=== PATIENT | male | born 1965 | race Hispanic/Latino ===

== ENCOUNTER 2016-11-17 14:23 | Day surgery (SDC) | payer BC ==
[~2016-11-17 14:23] MED LIST: NACL 0.9% 1000 ML 1,000 ML IV SCH; OMNIPAQUE 300 MG/50 ML (CATH LAB) IV ONE; PEPCID PO NR; WATER FOR IRRIG STERILE IR ONE
[2016-11-17] MEDS ORDERED: DIPRIVAN 10 MG/ML IV ONE (14:46)
[2016-11-17] MEDS ORDERED: DILAUDID ONE (14:46)
--- NOTE | 2016-11-17 15:07 | Anesthesia Day of Surgery ---
Anesthesia Day of Surgery - Day of Surgery Patient Examined: Yes Patient H&P Reviewed: Yes Patient is NPO: Yes
--- NOTE | 2016-11-17 15:10 | Anesthesia Consultation ---
Anesthesia Consult and Med Hx - Airway Anesthetic Teeth Evaluation: Good, Partials (upper front) ROM Head & Neck: Adequate Mental/Hyoid Distance: Adequate Mallampati Class: Class II Intubation Access Assessment: Probably Good - Pulmonary Exam CTA: Yes - Cardiac Exam Cardiac Exam: RRR (has heart murmur and being followed by cardiology. No symptoms) - Pre-Operative Health Status ASA Pre-Surgery Classification: ASA2 Proposed Anesthetic Plan: General - Pulmonary Hx Smoking: No Hx Sleep Apnea: No (LINH PRE SCREEN HIGH RISK) - Cardiovascular System Hx Hypertension: Yes (X 5 YRS) Hx Heart Murmur: Yes (CAUSES NO PROBLEMS) - Other Systems Hx Cancer: No - Additional Comments Anesthesia Medical History Comments: NPO after MN. Hx hyperlipidemia, HTN, and heart murmur. Had PONV with one anesthetic when propofol was not used.
[2016-11-17] MEDS: VERSED IV NR ×2 (15:26→16:21)
[2016-11-17] MEDS ORDERED: TRANSDERM-SCOP TD NR (16:00)
[2016-11-17] MEDS ORDERED: ANCEF/STERILE WATER 2 GM/20 ML IV NR (17:00)
[2016-11-17] MEDS ORDERED: NORCO 5/325 PO PRN (17:04)
[2016-11-17] MEDS ORDERED: ZOFRAN IV PRN (17:04)
[2016-11-17] MEDS ORDERED: WATER FOR IRRIG STERILE IR ONE ×3 (17:27)
[2016-11-17] MEDS ORDERED: OMNIPAQUE 300 MG/50 ML (CATH LAB) IV ONE (17:27)
[2016-11-17] MEDS ORDERED: DECADRON ONE ×2 (17:29→18:03)
[2016-11-17] MEDS ORDERED: ZOFRAN ONE (17:29)
[2016-11-17] MEDS ORDERED: XYLOCAINE MPF 2% ONE (17:42)
[2016-11-17] MEDS ORDERED: TORADOL ONE (19:22)
--- NOTE | 2016-11-17 19:53 | Short Stay Summary ---
Short Stay Documentation Date of service: 11/17/16 - History H&P: obtained from office - Allergies and Medications Current Medications: Allergies No Known Allergies Allergy (Verified 11/15/16 15:08) Home Medications Medication Instructions Recorded Confirmed Last Taken Type Cetirizine HCl [ZyrTEC] 10 mg PO DAILY 11/15/16 11/17/16 11/16/16 19:30 History 10MG Ciprofloxacin HCl [Ciprofloxacin 500 mg PO BID 11/15/16 11/17/16 11/16/16 19:30 History TAB] 500MG Lisinopril [Zestril TAB] 10 mg PO QDAY 11/15/16 11/17/16 11/16/16 19:30 History 10MG Pravastatin Sodium [Pravastatin] 40 mg PO QHS 11/15/16 11/17/16 11/16/16 19:30 History 40MG Active Medications Cefazolin Sodium (Ancef/Sterile Water 2 Gm/20 Ml) 2 gm IV PREOP NR Stop: 11/17/16 23:59 Famotidine (Pepcid) 20 mg PO PREOP NR Stop: 11/17/16 23:59 Last Admin: 11/17/16 15:06 Dose: 20 mg Hydromorphone HCl (Dilaudid) 0.5 mg IV Q10MIN PRN PRN Reason: Pain , Severe (7-10) Stop: 11/20/16 17:05 Sodium Chloride (Nacl 0.9% 1000 Ml) 1,000 mls @ 75 mls/hr IV DIRECT LINCOLN Last Admin: 11/17/16 15:15 Dose: 75 mls/hr Midazolam HCl (Versed) 2 mg IV PREOP NR Stop: 11/17/16 23:59 Last Admin: 11/17/16 16:21 Dose: 1 mg Scopolamine (Transderm-Scop) 1 each TD PREOP NR Stop: 11/17/16 23:59 Last Admin: 11/17/16 15:25 Dose: 1 each - Brief post op/procedure progress note Date of procedure: 11/17/16 Pre-op diagnosis: right uret stone Post-op diagnosis: other (same plus urethral stricture) Procedure: cysto clarice rpg, ureth dil; rt stent 6x28; rt urs,laser, sbe, stent Findings: jagged stone prox ureth stx hypospad Surgeon: JEWELL PEREZ Estimated blood loss: minimal Pathology: list (stone) Specimen disposition: to lab Condition: stable - Hospital course Hospital course: orpacuhome - Disposition Condition at discharge: Good Disposition: DISCHARGED TO HOME OR SELFCARE Short Stay Discharge Plan Activity: advance as tolerated Diet: advance as tolerated Follow up with: JEWELL PEREZ MD [Staff Physician] - 3 Days
[2016-11-17] MEDS: DILAUDID IV PRN ×2 (19:55→20:05)
--- NOTE | 2016-11-17 20:47 | Post Anesthesia Evaluation ---
- Post Anesthesia Evaluation Patient Participated: Yes Airway Patent: Yes Stable Respiratory Function: Yes Temp > 96.8F: Yes Pain Manageable: Yes Adequeate Hydration: Yes Anesthesia Complications: No Block Receding Appropriately: Not Applicable
[2016-11-17 22:51] VITALS: BP 143/63
--- NOTE | 2016-11-18 10:16 | Operative Report ---
UROLOGY OPERATIVE NOTE PREOPERATIVE DIAGNOSES: 1. Right ureteral stone. 2. Hypospadias. POSTOPERATIVE DIAGNOSES: 1. Right ureteral stone. 2. Hypospadias. PROCEDURE: Cystoscopy, urethral calibration, bilateral RPG, right ureteroscopy, right ureteral stent placement. SURGEON: Marco Novak MD ANESTHESIA: General. SPECIMENS: Stone. ESTIMATED BLOOD LOSS: Minimal. CLINICAL INDICATIONS: The patient was counseled RCBA, antibiotics, SCD. The patient was counseled on his hypospadias, there was significant risk of procedure, also counseled, given the past difficulties with past urologist unable to pass scopes within the hypospadias. There was significant high risk of damage to the urethra and hypospadias. He understood. Additionally, he understood possible limitations as the stone was proximal. At this point, we passed the wire, this was a little difficult to pass into the bladder. Flexible scope was passed. We were able to pass this, but there was some mild stenosis, this was gently dilated. Next, a 22-Omani scope was initially unable to pass. ____. The urethra had been gently dilated at 18-Omani. We passed the scope into the bladder, pancystoscopy with 30 and 70-lens, no obvious tumors, left UO cannulated, 8-Omani cone-tipped catheter, contrast injected. Normal left distal ureter, proximal ureter, renal pelvis calyces. No filling defects or hydronephrosis. Right retrograde demonstrated maybe some proximal hydroureter and some fullness of the renal pelvis. A 0.035 Glidewire was passed up to the right renal pelvis. Next, the ureteral orifice was tight, narrow, balloon dilator passed, which was opened to distal few cm of the ureter, this was dilated. Next, rigid ureteroscope was passed. We passed the scope gently up in the distal ureter, mid ureter, and towards the proximal ureter. Very jagged stone was identified. We tried grasping this with a 3-prong grasper, unable to pull out. Holmium laser fiber passed. We fragmented the stones from range of 1.5 to 3.6 chacon, staying mostly at 1.5 chacon. The stone was fragmented into small pieces. Then, using the triceps forceps the pieces were grasped and pulled out intact and dropped within the bladder. We did not want to pass the scope in and out of the hypospadiac urethra multiple times, so then it was elected to drop these fragments into the bladder, and of course ____ a lot tiny stone fragments and dust particles. We passed the scope again a few times, removing small fragments as best as possible. Of course, given the proximal nature there appeared may be some fragments migrating into the right renal pelvis, kidney. A second wire was passed, flexible ureteroscope was passed up to the right renal pelvis. The renal pelvis was aspirated fluid and irrigated. We then applied a stone. A 3-prong grasper used to grasp the stone. This has pulled down the ureter and then got stuck within the ureter. Next, rigid ureteroscope was passed into the distal ureter to grasp the stone. The stone was manipulated and 2 larger stone fragments were grasped and pulled out. Once these were pulled out, at this point, the scope was passed up the ureter. No significant residual stones identified. There was some oozing, wire was backloaded within the prostatic urethra. The wire was backloaded on the cystoscope. A 6 x 28 double-J stent was passed over the wire under direct and fluoroscopic visualization when the wire and string was removed, nice proximal and distal J within the bladder. Bladder was drained. At this point, the bladder was irrigated multiple times. There was some oozing from the patient's left lateral prostatic lobe. At this point, a Bugbee was passed. We cauterized some of the superficial bleeding. Of course, we had obtained ____ and set this up. The distal area was cauterized. There was no significant active bleeding. It was elected due to the procedure and calibration. The urethra was inspected. There was an area that looked a little tenuous and weak on the distal urethra, it was elected to pass a catheter. A 16-Omani catheter placed. In addition to the bleeding from the prostate through this and the calibration of the urethra, a catheter was passed, balloon inflated to 12 mL. We inspected this tenuous area on the urethra that it could even be a little hard to tell, but it appeared to be maybe a pinpoint area of concern or opening. Three small 4-0 sutures were passed to approximate this area and reinforce this area. The patient was awakened, but prior to this exam under anesthesia demonstrated prostate, no nodules. Testicles, no masses. The patient awakened and transferred to PACU in good and stable condition. JOB# [id number] ATS/NTS
--- NOTE | 2016-11-18 13:36 | Fluoroscopy Report ---
Bilateral retrograde sonogram and balloon dilatation of right ureter. Findings: The left pelvicalyceal system and ureter appear normal. There is minimal fullness of the right pelvicalyceal system. At ureteroscopy, a right ureteral stone was identified. Laser lithotripsy was performed and balloon dilatation of ureter was performed. On the final image, a double-J right ureteral stent is demonstrated in satisfactory position.
== END 2016-11-17 14:24 | disposition home or self-care (01) ==
LOC: OR 14:23
PROVIDERS: ATTEND Urology
DX: N20.1 Calculus of ureter (principal); Q54.1 Hypospadias, penile; I10 Essential (primary) hypertension; Z79.899 Other long term (current) drug therapy; Z87.440 Personal history of urinary (tract) infections; Z83.3 Family history of diabetes mellitus; Z82.3 Family history of stroke; Z82.49 Family history of ischemic heart disease and other diseases of the circulatory system; Z83.49 Family history of other endocrine, nutritional and metabolic diseases
CPT/HCPCS: 52356; 74420; 74485; 88300; A4217; C1726; C1758; C1769; C2617; J0690; J1100; J1170; J1885; J2250; J2405; J2704; J7030; Q9967